=== PATIENT | male | born 1960 | race Caucasian/White ===

== ENCOUNTER → 2017-07-25 | Outpatient (CLI) | payer MEDICARE, MEDICAID ==
[~2017-07-25] MED LIST: ABILIFY30 MG PO; ABILIFY5 MG PO; AMBIEN 10MG10 MG PO; AMBIEN 5MG TABLE5 MG; CYMBALTA 60MG60 MG; DARVOCET N; ESCITALOPRAM; LORTAB 5/500 501 TA1 PO; MIRTAZAPINE7.5 MG; NO HOME MEDICATIONS; PRINIVIL10 MG PO; PRISTIQ 50 MG T50 MG; PRISTIQ100 MG PO; REMERON45 MG PO; SEROQUEL; SEROQUEL 200MG200 MG PO; TRAZADONE HYDR100 MG PO
== END ==
LOC: COL.RAD 12:31
DX: M25.531 Pain in right wrist (principal); M25.532 Pain in left wrist
CPT/HCPCS: J3301; Q9967

== ENCOUNTER → 2024-08-05 | Outpatient (CLI) | payer MEDICARE, MEDICAID ==
[~2024-08-05] MED LIST changes: +Iohexol 300 - 10 ML VIAL IV ONE; +Triamcinolone 40 MG/ML 1 ML VIAL IJ ONE
== END ==
LOC: COL.RAD 12:26
DX: M25.552 Pain in left hip (principal)
CPT/HCPCS: J0665; J3301; Q9967